=== PATIENT | male | born 2000 | race Caucasian/White ===

== ENCOUNTER 2020-08-25 01:31 | Emergency (ER) | payer OTHER ==
[~2020-08-25] VITALS: Ht 167.6 cm; Wt 99.8 kg
[2020-08-25 01:40] VITALS: BP 141/95
--- NOTE | 2020-08-25 01:40 | NUR ---
TO BED AMBULATORY
--- NOTE | 2020-08-25 01:45 | NUR ---
PATIENT 19 Y/O MALE BIB SELF FOR C/O L CHEST PAIN 11/24. PER PATIENT PAIN IS INTERMITTENT AND HAS BEEN OCCURING FOR 3 MONTHS. PATIENT STATES, " TODAY JUST FELT REALLY BAD AND I THOUGH I WAS HAVING A HEART ATTACK." PATIENT STATES HAS NOT TAKEN RX: ATENOLOL 25MG X 1 WEEK. PER PATIENT PAIN FEELS "SHARP AND STABBING, LIKE A KNIFE." S1S2 HEARD. RADIAL PULSES EQUAL AND STRONG BILAT. PATIENT CMS INTACT. CAP REFILL <3. DENIES COUGH OR SOB. MEDHX: HTN, HYPERTHYROID ALLERGIES: DENIES
--- NOTE | 2020-08-25 02:02 | NUR ---
ERMD EVALUATING PATIENT AT BEDSIDE.
[2020-08-25] MEDS ORDERED: METOPROLOL 5 MG/5 ML VIAL IVP ONE (02:10)
[2020-08-25] MEDS ORDERED: NACL 0.9% 500 ML IV ONE (02:10)
--- NOTE | 2020-08-25 02:28 | NUR ---
XRAY AT BEDSIDE.
--- NOTE | 2020-08-25 02:37 | NUR ---
BLOOD DRAW AND URINE SAMPLE TAKEN TO LAB.
[2020-08-25 02:52] LABS: BASOPHILS # (AUTO) 0.4 K/uL (0.00-0.22); BASOPHILS % (AUTO) 3.1 % (0.0-2.0); EOSINOPHILS # (AUTO) 0.2 K/uL (0-0.4); EOSINOPHILS % (AUTO) 1.7 % (0.0-4.0); HEMATOCRIT 47.8 % (36-52); HEMOGLOBIN 16.4 g/dL (12.0-18.0); LYMPHOCYTES # (AUTO) 2.9 K/uL (2.0-11.5); LYMPHOCYTES % (AUTO) 23.4 % (20.5-51.1); MEAN CORPUSCULAR HEMOGLOBIN 30 pg (27-31); MEAN CORPUSCULAR HGB CONC 34 g/dL (33-37); MEAN CORPUSCULAR VOLUME 87.7 fL (80-94); MONOCYTES # (AUTO) 1.2 K/uL (0.8-1.0); MONOCYTES % (AUTO) 9.6 % (1.7-9.3); NEUTROPHILS # (AUTO) 7.8 K/uL (1.8-7.7); NEUTROPHILS % (AUTO) 62.2 % (42.2-75.2); PLATELET COUNT (AUTO) 338 K/uL (140-450); RED BLOOD CELL COUNT(AUTO) 5.46 MIL/uL (4.20-6.10); RED CELL DISTRIBUTION WIDTH 13.4 % (11.6-13.7); WHITE BLOOD COUNT (AUTO) 12.6 K/uL (4.5-11.0)
[2020-08-25 03:10] LABS: BARBITURATE, URINE NEGATIVE ng/ml (NEG <=200); BENZODIAZEPINE, URINE NEGATIVE ng/mL (NEG <=200); CANNABINOID, URINE POSITIVE ng/mL (NEG <=50); COCAINE, URINE NEGATIVE ng/mL (NEG <=300); OPIATE, URINE NEGATIVE ng/mL (NEG <=2000); PHENCYCLIDINE SCREEN,URINE NEGATIVE ng/mL (NEG <=25)
[2020-08-25 03:19] LABS: ALBUMIN 4.5 g/dL (3.4-5.0); ANION GAP 12.5 (8-16); ASPARTATE AMINOTRANSFERASE 43 U/L (15-37); CARBON DIOXIDE 27.7 mmol/L (21-32); CHLORIDE 98 mmol/L (98-107); CREATININE 0.9 mg/dL (0.6-1.3); GFR ARICAN-AMERICAN 138 mL/min (>90); GLUCOSE 121 mg/dL (74-106); POTASSIUM 3.2 mmol/L (3.5-5.1); SODIUM SERUM 135 mmol/L (136-145); THYROID STIMULATING HORMONE < 0.01 uIU/mL (0.34-3.74); TOTAL BILIRUBIN 0.7 mg/dL (0.0-1.0); UREA NITROGEN, BLOOD 11 mg/dL (7-18)
--- NOTE | 2020-08-25 03:26 | NUR ---
ASSESSED PATIENT AT BEDSIDE. PATIENT REPORTS "I DONT HAVE ANY PAIN RIGHT NOW." PATIENT LYING IN BED, COMFORTABLY. NO NOTED DISTRESS.
[2020-08-25] MEDS ORDERED: ATEN25TA2 PO (04:06)
[2020-08-25 04:16] VITALS: BP 121/76
--- NOTE | 2020-08-25 04:16 | NUR ---
Patient discharged with v/s stable. Written and verbal after care instructions given and explained. Patient alert, oriented and verbalized understanding of instructions. Ambulatory with steady gait. All questions addressed prior to discharge. ID band removed. Patient advised to follow up with PMD. Rx of ATENOLOL given. Patient educated on indication of medication including possible reaction and side effects. Opportunity to ask questions provided and answered.
== END 2020-08-25 04:16 | disposition home or self-care (01) ==
LOC: MED 01:31
DX: R07.9 Chest pain, unspecified (principal); R00.0 Tachycardia, unspecified; E05.90 Thyrotoxicosis, unspecified without thyrotoxic crisis or storm; E87.6 Hypokalemia; Z79.899 Other long term (current) drug therapy
CPT/HCPCS: 36415; 71045; 80053; 80305; 84439; 84443; 84479; 84484; 85025; 93005; 96361; 96374; 99285; G0482; J3490; J7030

== ENCOUNTER 2020-09-12 12:46 | Emergency (ER) | payer OTHER ==
[~2020-09-12] VITALS: Ht 167.6 cm; Wt 91.6 kg
[~2020-09-12 12:46] MED LIST: ATEN25TA2 PO
[2020-09-12 12:50] VITALS: BP 156/90
--- NOTE | 2020-09-12 13:00 | NUR ---
19 YO M BIB SELF FOR C/C OF 5/10 R HAND PAIN FROM PROBABLE BUG BITE X30 MIN AGO. SWELLING/REDNESS VISUALIZED, PT REPORTS REMOVING A WHITE STINGER. PT DENIES OTC MEDS. MED HX: HYPERTHYROID ALLERGY TO BEE STINGS
[2020-09-12] MEDS ORDERED: HYD1C TP (13:13)
[2020-09-12] MEDS ORDERED: PRED10TA5 PO (13:13)
[2020-09-12 13:20] VITALS: BP 156/90
--- NOTE | 2020-09-12 13:20 | NUR ---
Patient discharged with v/s stable. Written and verbal after care instructions given and explained. Patient alert, oriented and verbalized understanding of instructions. Ambulatory with steady gait. All questions addressed prior to discharge. ID band removed. Patient advised to follow up with PMD. Rx of Hydrocortisone, Prednisone given. Patient educated on indication of medication including possible reaction and side effects. Opportunity to ask questions provided and answered.
== END 2020-09-12 13:20 | disposition home or self-care (01) ==
LOC: MED 12:46
DX: S60.561A Insect bite (nonvenomous) of right hand, initial encounter (principal); I10 Essential (primary) hypertension; E05.90 Thyrotoxicosis, unspecified without thyrotoxic crisis or storm; Z79.899 Other long term (current) drug therapy; W57.XXXA Bitten or stung by nonvenomous insect and other nonvenomous arthropods, initial encounter; Y93.89 Activity, other specified; Y92.89 Other specified places as the place of occurrence of the external cause; Y99.8 Other external cause status
CPT/HCPCS: 99283

== ENCOUNTER 2022-01-13 13:40 | Emergency (ER) | payer OTHER ==
[~2022-01-13] VITALS: Ht 167.6 cm; Wt 90.3 kg
[~2022-01-13 13:40] MED LIST changes: +HYD1C TP; +PRED10TA5 PO
[2022-01-13 13:55] VITALS: BP 146/95
--- NOTE | 2022-01-13 15:05 | NUR ---
21/M PRESENTS TO ED WITH C/O WEAKNESS, HTN AND INTERMITTENT EPISODES OF CP X6 MONTHS. STATES HE WAS DX WITH HYPERTHYROIDISM AND GIVEN RX OF ATENOLOL BUT REPORTS DID NOT CONTINUE FOLLOW UP, REPORTS LAST DOSE OF ATENOLOL TAKEN WAS 5-6 MONTHS AGO. DENIES FEVERS, COUGH, N/V/D.
[2022-01-13 15:24] LABS: BASOPHILS # (AUTO) 0.1 K/uL (0.00-0.22); BASOPHILS % (AUTO) 0.9 % (0.0-2.0); EOSINOPHILS # (AUTO) 0.2 K/uL (0-0.4); HEMATOCRIT 45.2 % (36-52); HEMOGLOBIN 15.4 g/dL (12.0-18.0); LYMPHOCYTES # (AUTO) 2.9 K/uL (2.0-11.5); LYMPHOCYTES % (AUTO) 30.4 % (20.5-51.1); MEAN CORPUSCULAR HEMOGLOBIN 30 pg (27-31); MEAN CORPUSCULAR HGB CONC 34 g/dL (33-37); MEAN CORPUSCULAR VOLUME 88.9 fL (80-94); MONOCYTES # (AUTO) 0.8 K/uL (0.8-1.0); NEUTROPHILS # (AUTO) 5.6 K/uL (1.8-7.7); NEUTROPHILS % (AUTO) 58.7 % (42.2-75.2); PLATELET COUNT (AUTO) 319 K/uL (140-450); RED BLOOD CELL COUNT(AUTO) 5.08 MIL/uL (4.20-6.10); RED CELL DISTRIBUTION WIDTH 12.8 % (11.6-13.7); WHITE BLOOD COUNT (AUTO) 9.6 K/uL (4.8-10.8)
[2022-01-13 15:37] LABS: ANION GAP 15.5 (8-16); CARBON DIOXIDE 28.2 mmol/L (21-32); CREATININE 0.8 mg/dL (0.6-1.3); POTASSIUM 3.7 mmol/L (3.5-5.1)
[2022-01-13] MEDS ORDERED: ATEN25TA7 PO (16:43)
[2022-01-13 16:58] VITALS: BP 149/78
--- NOTE | 2022-01-13 16:58 | NUR ---
Patient discharged with v/s stable. Written and verbal after care instructions ABOUT NONSPECIFIC CHEST PAIN given and explained. Patient alert, oriented and verbalized understanding of instructions. Ambulatory with steady gait. All questions addressed prior to discharge. ID band removed. Patient advised to follow up with PMD. Rx of TENORMIN given. Patient educated on indication of medication including possible reaction and side effects. Opportunity to ask questions provided and answered.
== END 2022-01-13 16:58 | disposition home or self-care (01) ==
LOC: MED 13:40
DX: R07.9 Chest pain, unspecified (principal); R42 Dizziness and giddiness; E03.9 Hypothyroidism, unspecified; I10 Essential (primary) hypertension; F12.90 Cannabis use, unspecified, uncomplicated
CPT/HCPCS: 36415; 80048; 84443; 85025; 93005; 99284